=== PATIENT | female | born 1985 | race Caucasian/White ===

== ENCOUNTER 2017-01-02 22:11 | Emergency (ER) | payer BC ==
[2017-01-02 22:39] VITALS: BP 158/113
[2017-01-02] MEDS ORDERED: Sodium Chloride 0.9% 10 ML Syringe FLUSH PRN (23:12)
[2017-01-02] MEDS ORDERED: Sodium Chloride 0.9% 1,000 ML IV SCH (23:15)
[2017-01-03] MEDS ORDERED: Acetaminophen 325 MG Tab PO ONE (00:09)
[2017-01-03] MEDS ORDERED: Acetaminophen 325 MG Tab ONE (00:19)
--- NOTE | 2017-01-03 01:35 | EDM.PDOCBH ---
ED HPI GENERAL MEDICAL PROBLEM - General Chief Complaint: Drug or Alcohol Abuse Stated Complaint: INTOXICATION Time Seen by Provider: 01/02/17 22:32 Source of Information: Reports: Patient History Limitations: Reports: Intoxication - History of Present Illness INITIAL COMMENTS - FREE TEXT/NARRATIVE: The patient presents because she wants to stop drinking. She is an alcoholic and she has been sober for 6 months after attending treatment in [place]. She has been drinking heavily for the past 6 days after her left her. She drinks hard liquor. She drank a few hours before arrival. She has no nausea, fever, chills, cough, chest pain, shortness of breath or abdominal pain. Onset: Gradual Duration: Week(s): (1) Severity: Severe Improves with: Reports: None Worsens with: Reports: None Associated Symptoms: Reports: No Other Symptoms - Related Data Allergies Allergy/AdvReac Type Severity Reaction Status Date / Time No Known Allergies Allergy Verified 01/02/17 22:39 Home Meds: Home Meds Ethinyl Estradiol/Drospirenone [Courtney 3 mg-0.02 mg Tablet] 1 each PO DAILY 11/22 [History] Metoprolol Tartrate [Lopressor] 50 mg PO Q12HR #60 tablet 11/23/15 [Rx] LORazepam [Ativan] 1 mg PO Q8HR PRN #20 tablet 01/03/17 [Rx] Potassium Chloride 20 meq PO DAILY #20 tablet.er 01/03/17 [Rx] Past Medical History Cardiovascular History: Reports: Hypertension, Other (See Below) Other Cardiovascular History: palpitations 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: Reports: Other (See Below) Other OB/BYN History: abnormal PAP smear with recent colposcopy that was benign Psychiatric History: Reports: Addiction, Anxiety - Infectious Disease History Infectious Disease History: Reports: Chicken Pox - Past Surgical History HEENT Surgical History: Reports: Oral Surgery, Other (See Below) Social & Family History - Family History Cardiac: Reports: AR - Tobacco Use Smoking Status *Q: Unknown Ever Smoked Years of Tobacco use: 10 Packs/Tins Daily: 0.1 Second Hand Smoke Exposure: No - Caffeine Use Caffeine Use: Reports: Soda - Alcohol Use Days Per Week of Alcohol Use: 7 Number of Drinks Per Day: 10 Total Drinks Per Week: 70 - Recreational Drug Use Recreational Drug Use: No ED ROS GENERAL - Review of Systems Review Of Systems: See Below Constitutional: Reports: No Symptoms HEENT: Reports: No Symptoms Respiratory: Reports: No Symptoms Cardiovascular: Reports: No Symptoms Endocrine: Reports: No Symptoms GI/Abdominal: Reports: No Symptoms : Reports: No Symptoms Musculoskeletal: Reports: No Symptoms Skin: Reports: No Symptoms Neurological: Reports: No Symptoms Psychiatric: Reports: No Symptoms ED EXAM, BEHAVIORAL HEALTH - Physical Exam Exam: See Below Exam Limited By: Intoxication General Appearance: Alert, No Apparent Distress Ears: Normal External Exam Nose: Normal Inspection Head: Atraumatic, Normocephalic Neck: Normal Inspection Respiratory/Chest: No Respiratory Distress, Lungs Clear, Normal Breath Sounds Cardiovascular: Regular Rate, Rhythm, No Edema, No Murmur GI/Abdominal: Soft, Non-Tender, No Organomegaly, No Mass Back Exam: Normal Inspection Extremities: Normal Inspection Neurological: Alert, No Motor/Sensory Deficits, Oriented x 3 COURSE, BEHAVIORAL HEALTH COMP - Course Vital Signs: Last Vital Signs Temp 98.0 F 01/02/17 22:37 Pulse 101 H 01/03/17 06:00 Resp 18 01/02/17 22:37 BP 158/113 H 01/02/17 22:37 Pulse Ox 98 01/03/17 06:00 Orders, Labs, Meds: Active Orders 24 hr Category Date Time Status Cardiac Monitoring [RC] . DIRECTED Care 01/02/17 23:12 Active Peripheral IV Care [RC] . DIRECTED Care 01/02/17 23:13 Active D5 1/2 NS w/ 20 mEq/L KCl 1,000 ml Med 01/03/17 01:45 Active IV ASDIRECTED Sodium Chloride 0.9% [Normal Saline] 1,000 ml Med 01/02/17 23:15 Active IV .BOLUS Sodium Chloride 0.9% [Saline Flush] Med 01/02/17 23:12 Active 10 ml FLUSH ASDIRECTED PRN Peripheral IV Insertion Adult [OM.PC] Stat Oth 01/02/17 23:12 Ordered Medication Orders Sodium Chloride (Normal Saline) 1,000 mls @ 1,000 mls/hr IV .BOLUS MEETA Last Admin: 01/02/17 23:32 Dose: 1,000 mls/hr Potassium Chloride/Dextrose/Sod Cl (D5 1/2 Ns W/ 20 Meq/L Kcl) 1,000 mls @ 150 mls/hr IV ASDIRECTED MEETA Last Admin: 01/03/17 01:49 Dose: 150 mls/hr Sodium Chloride (Saline Flush) 10 ml FLUSH ASDIRECTED PRN PRN Reason: Keep Vein Open Last Admin: 01/02/17 23:32 Dose: 10 ml Laboratory Tests 01/02/17 01/02/17 01/02/17 Range/Units 23:34 23:34 23:34 WBC 4.96 (3.98-10.04) K/mm3 RBC 4.80 (3.98-5.22) M/mm3 Hgb 14.2 (11.2-15.7) gm/L Hct 42.6 (34.1-44.9) % MCV 88.8 (79.4-94.8) fl MCH 29.6 (25.6-32.2) pg MCHC 33.3 (32.2-35.5) g/dl RDW Std Deviation 51.2 H (36.4-46.3) fL Plt Count 258 (182-369) K/mm3 MPV 9.4 (9.4-12.3) fl Neut % (Auto) 28.2 L (34.0-71.1) % Lymph % (Auto) 59.3 H (19.3-51.7) % Fergus % (Auto) 11.7 (4.7-12.5) % Eos % (Auto) 0 L (0.7-5.8) Baso % (Auto) 0.8 (0.1-1.2) % Neut # (Auto) 1.40 L (1.56-6.13) K/mm3 Lymph # (Auto) 2.94 (1.18-3.74) K/mm3 Fergus # (Auto) 0.58 H (0.24-0.36) K/mm3 Eos # (Auto) 0.00 L (0.04-0.36) K/mm3 Baso # (Auto) 0.04 (0.01-0.08) K/mm3 Sodium 147 H (136-145) mEq/L Potassium 2.7 L (3.5-5.1) mEq/L Chloride 105 (98-107) mEq/L Carbon Dioxide 29 (21-32) mEq/L Anion Gap 15.7 H (5-15) BUN 4 L (7-18) mg/dL Creatinine 0.8 (0.55-1.02) mg/dL Est Cr Clr Drug Dosing TNP Estimated GFR (MDRD) > 60 (>60) mL/min BUN/Creatinine Ratio 5.0 L (14-18) Glucose 107 H (74-106) mg/dL Calcium 8.5 (8.5-10.1) mg/dL Total Bilirubin 0.3 (0.2-1.0) mg/dL AST 49 H (15-37) U/L ALT 55 (14-59) U/L Alkaline Phosphatase 89 (46-116) U/L Total Protein 7.5 (6.4-8.2) g/dl Albumin 3.8 (3.4-5.0) g/dl Globulin 3.7 gm/dL Albumin/Globulin Ratio 1.0 (1-2) HCG, Qual Negative (NEGATIVE) Urine Opiates Screen (NEGATIVE) Ur Buprenorphine Scrn (NEGATIVE) Ur Oxycodone Screen (NEGATIVE) Urine Methadone Screen (NEGATIVE) Ur Propoxyphene Screen (NEGATIVE) Ur Barbiturates Screen (NEGATIVE) Ur Tricyclics Screen (NEGATIVE) Ur Phencyclidine Scrn (NEGATIVE) Ur Amphetamine Screen (NEGATIVE) U Methamphetamines Scrn (NEGATIVE) U Benzodiazepines Scrn (NEGATIVE) U Cocaine Metab Screen (NEGATIVE) U Marijuana (THC) Screen (NEGATIVE) Ethyl Alcohol 0.41 (0.00) gm% 01/03/17 Range/Units 01:52 WBC (3.98-10.04) K/mm3 RBC (3.98-5.22) M/mm3 Hgb (11.2-15.7) gm/L Hct (34.1-44.9) % MCV (79.4-94.8) fl MCH (25.6-32.2) pg MCHC (32.2-35.5) g/dl RDW Std Deviation (36.4-46.3) fL Plt Count (182-369) K/mm3 MPV (9.4-12.3) fl Neut % (Auto) (34.0-71.1) % Lymph % (Auto) (19.3-51.7) % Fergus % (Auto) (4.7-12.5) % Eos % (Auto) (0.7-5.8) Baso % (Auto) (0.1-1.2) % Neut # (Auto) (1.56-6.13) K/mm3 Lymph # (Auto) (1.18-3.74) K/mm3 Fergus # (Auto) (0.24-0.36) K/mm3 Eos # (Auto) (0.04-0.36) K/mm3 Baso # (Auto) (0.01-0.08) K/mm3 Sodium (136-145) mEq/L Potassium (3.5-5.1) mEq/L Chloride (98-107) mEq/L Carbon Dioxide (21-32) mEq/L Anion Gap (5-15) BUN (7-18) mg/dL Creatinine (0.55-1.02) mg/dL Est Cr Clr Drug Dosing Estimated GFR (MDRD) (>60) mL/min BUN/Creatinine Ratio (14-18) Glucose (74-106) mg/dL Calcium (8.5-10.1) mg/dL Total Bilirubin (0.2-1.0) mg/dL AST (15-37) U/L ALT (14-59) U/L Alkaline Phosphatase (46-116) U/L Total Protein (6.4-8.2) g/dl Albumin (3.4-5.0) g/dl Globulin gm/dL Albumin/Globulin Ratio (1-2) HCG, Qual (NEGATIVE) Urine Opiates Screen Negative (NEGATIVE) Ur Buprenorphine Scrn Negative (NEGATIVE) Ur Oxycodone Screen Negative (NEGATIVE) Urine Methadone Screen Negative (NEGATIVE) Ur Propoxyphene Screen Negative (NEGATIVE) Ur Barbiturates Screen Negative (NEGATIVE) Ur Tricyclics Screen Negative (NEGATIVE) Ur Phencyclidine Scrn Negative (NEGATIVE) Ur Amphetamine Screen Negative (NEGATIVE) U Methamphetamines Scrn Negative (NEGATIVE) U Benzodiazepines Scrn Negative (NEGATIVE) U Cocaine Metab Screen Negative (NEGATIVE) U Marijuana (THC) Screen Negative (NEGATIVE) Ethyl Alcohol (0.00) gm% Medications Generic Name Dose Route Start Last Admin Trade Name Freq PRN Reason Stop Dose Admin Sodium Chloride 1,000 mls @ 1,000 mls/hr 01/02/17 23:15 01/02/17 23:32 Normal Saline IV 1,000 mls/hr .BOLUS MEETA Administration Potassium Chloride/Dextrose/Sod Cl 1,000 mls @ 150 mls/hr 01/03/17 01:45 01:49 D5 1/2 Ns W/ 20 Meq/L Kcl IV 150 mls/hr ASDIRECTED MEETA Administration Sodium Chloride 10 ml 01/02/17 23:12 01/02/17 23:32 Saline Flush FLUSH 10 ml ASDIRECTED PRN Administration Keep Vein Open Discontinued Medications Generic Name Dose Route Start Last Admin Trade Name Mario PRN Reason Stop Dose Admin Acetaminophen 975 mg 01/03/17 00:09 01/03/17 00:13 Tylenol PO 01/03/17 00:10 975 mg NOW ONE Administration Acetaminophen Confirm 01/03/17 00:19 01/03/17 01:50 Tylenol Administered 01/03/17 00:20 Not Given Dose 325 mg .ROUTE .STK-MED ONE Lorazepam 1 mg 01/03/17 01:41 01/03/17 01:49 Ativan IVPUSH 01/03/17 01:42 1 mg ONETIME ONE Administration Re-Assessment/Re-Exam: I ordered an IV NS 1L bolus and labs. Her CBC looks good. Her Na was elevated at 147. Her K was low at 2.7. Her anion gap was elevated at 15.7. Her AST was elevated at 49. Her HCG was negative. Her ETOH was 0.41. She will be staying with us for a few hours. She had a headache so I ordered some tylenol 975mg by mouth. I will give her more IV fluids with potassium. She is doing better now. I will get her some potassium and some ativan for any withdrawal symptoms. I will have her follow up with [facility] [place] or Gabe at [facility]. Departure - Departure Time of Disposition: 06:30 Disposition: Home, Self-Care 01 Condition: Good Clinical Impression: Alcohol abuse Alcohol intoxication Qualifiers: Complication of substance-induced condition: uncomplicated Qualified Code(s): F10.920 - Alcohol use, unspecified with intoxication, uncomplicated - Discharge Information Prescriptions: LORazepam [Ativan] 1 mg PO Q8HR PRN #20 tablet PRN Reason: Anxiety Potassium Chloride 20 meq PO DAILY #20 tablet.er Referrals: Yaritza Perez PA-C [Primary Care Provider] - Additional Instructions: Your potassium was low. Take potassium daily and have that rechecked in 1 week. Call [facility] at for help stopping drinking. Take the ativan 1mg every 8 hours as needed for withdrawal symptoms. Please return if you are worse. - My Orders Last 24 Hours: My Active Orders 01/02/17 23:12 Cardiac Monitoring [RC] . DIRECTED Sodium Chloride 0.9% [Saline Flush] 10 ml FLUSH ASDIRECTED PRN Peripheral IV Insertion Adult [OM.PC] Stat 01/02/17 23:13 Peripheral IV Care [RC] . DIRECTED 01/02/17 23:15 Sodium Chloride 0.9% [Normal Saline] 1,000 ml IV .BOLUS 01/03/17 01:45 D5 1/2 NS w/ 20 mEq/L KCl 1,000 ml IV ASDIRECTED - Assessment/Plan Last 24 Hours: My Active Orders 01/02/17 23:12 Cardiac Monitoring [RC] . DIRECTED Sodium Chloride 0.9% [Saline Flush] 10 ml FLUSH ASDIRECTED PRN Peripheral IV Insertion Adult [OM.PC] Stat 01/02/17 23:13 Peripheral IV Care [RC] . DIRECTED 01/02/17 23:15 Sodium Chloride 0.9% [Normal Saline] 1,000 ml IV .BOLUS 01/03/17 01:45 D5 1/2 NS w/ 20 mEq/L KCl 1,000 ml IV ASDIRECTED
[2017-01-03] MEDS ORDERED: LORazepam 2 MG/ML MDV IVPUSH ONE (01:41)
[2017-01-03] MEDS ORDERED: D5 1/2 NS w/ 20 mEq/L KCl 1,000 ML IV SCH (01:45)
== END 2017-01-03 06:53 | disposition home or self-care (01) ==
LOC: SUPCPDRO 22:11 → JD.ED 22:11
DX: F10.120 Alcohol abuse with intoxication, uncomplicated (principal); I10 Essential (primary) hypertension; F41.9 Anxiety disorder, unspecified; F17.210 Nicotine dependence, cigarettes, uncomplicated; Z79.899 Other long term (current) drug therapy; Y90.2 Blood alcohol level of 40-59 mg/100 ml
CPT/HCPCS: 36415; 80053; 80306; 84703; 85025; 96361; 96374; 99285; A9270; G0480; J2060; J3480; J7040; J7050